=== PATIENT | male | born 1955 | race Caucasian/White ===

== ENCOUNTER → 2018-02-25 | Outpatient (CLI) | payer BC ==
--- NOTE | 2018-02-25 08:41 | CARD ---
MR#: [id number] Date of Study: 02/25/2018 Ordering Physician: LEW SIMONS, Referring Physician: LEW SIMONS, Tech: Mayelin Rodriguez [facility] APPROVED REPORT EXAM: Two-dimensional and M-mode echocardiogram with Doppler and color Doppler. Other Information Quality : Technically LimitedHR: 63bpm Rhythm : IrregularTechnically limited study due to body habitus. INDICATION Edema 2D DIMENSIONS RVDd3.8 (2.9-3.5cm)IVSd1.5 (0.7-1.1cm) Aortic Root(2D)3.6 (2.0-3.7cm)LVDd4.4 (3.9-5.9cm) LVOT Diameter1.9 (1.8-2.4cm)PWd1.2 (0.7-1.1cm) LVDs3.1 (2.5-4.0cm)FS (%) 29.8 % SV50.0 mlLVEF(%)57.1 (>50%) M-Mode DIMENSIONS Left Atrium(MM)4.25 (2.5-4.0cm)Aortic Root3.82 (2.2-3.7cm) Aortic Valve AoV Peak Pj.151.7cm/sAoV VTI29.8cm AO Peak GR.9.2mmHgLVOT Peak Pj.105.9cm/s AO Mean GR.5mmHgAVA (VMAX)1.99cm2 DAGOBERTO (VTI)2.00cm2 Mitral Valve MV E Jaiwbuwx29.6cm/sMV DECEL [id number] MV A Qpsmbpcr65.2cm/sE/A Ratio0.9 MV A [id number] Pulmonary Valve PV Peak Tewxnzxm405.0cm/s Pulmonary Vein S1 Tuhttqxj70.3cm/sD2 Rryixpzt09.4cm/s PVa [id number] LEFT VENTRICLE The left ventricle is normal size. There is mild concentric left ventricular hypertrophy. The left ve ntricular systolic function is normal. The Ejection Fraction is 55-60%. There is normal LV segmental wall motion. Transmitral Doppler flow pattern is Grade I-abnormal relaxation pattern. RIGHT VENTRICLE The right ventricle is normal size. There is normal right ventricular wall thickness. The right ventr icular systolic function is normal. ATRIA The left atrium size is normal. The right atrium size is normal. The interatrial septum is intact wit h no evidence for an atrial septal defect or patent foramen ovale as noted on 2-D or Doppler imaging. AORTIC VALVE The aortic valve is normal in structure and function. The aortic valve is trileaflet. Doppler and Col or Flow revealed no significant aortic regurgitation. There is no significant aortic valvular stenosi s. MITRAL VALVE The mitral valve is normal in structure and function. There is no evidence of mitral valve prolapse. There is no mitral valve stenosis. Doppler and Color Flow revealed no mitral valve regurgitation note d. TRICUSPID VALVE The tricuspid valve is normal in structure and function. Doppler and Color Flow revealed no tricuspid valve regurgitation noted. There is no tricuspid valve prolapse or vegetation. There is no tricuspid valve stenosis. PULMONIC VALVE Pulmonic valve not well visualized. GREAT VESSELS The aortic root is mildly enlarged. The ascending aorta is Mildly dilated. PERICARDIAL EFFUSION There is no evidence of significant pericardial effusion. Critical Notification Critical Value: No <Conclusion> The left ventricular systolic function is normal. The Ejection Fraction is 55-60%. There is normal LV segmental wall motion. No significant valvular abnormalities. There is no evidence of significant pericardial effusion. Signed by : Dewey Ring, Electronically Approved : 02/25/2018 08:40:32
--- NOTE | 2018-02-25 10:18 | RAD ---
MR#: [id number] Date of Study: 02/25/2018 Ordering Physician: LEW SIMONS, Referring Physician: LEW SIMONS, Tech: Yogesh Rowland MBA, RDMS, RVT, RDCS, RTR APPROVED REPORT Bilateral Lower Extremity Venous Study for DVT Patient Location: OUT-PATIENT Indications Lower Extremity Edema: Bilateral Vein Imaging (Right) CFV (R): Compressible SFJ (R): Compressible FEM (R): Compressible POP (R): Compressible DFV (R): Compressible PTV (R): Spontaneous GSV (R): Spontaneous Peroneals (R): Spontaneous Vein Imaging (Left) CFV (L): Compressible SFJ (L): Compressible FEM (L): Compressible POP (L): Compressible DFV (L): Compressible PTV (L): Spontaneous GSV (L): Spontaneous Peroneals (L): Spontaneous Doppler Evaluation (Right) CFV (R): Spontaneous POP (R):Spontaneous Doppler Evaluation (Left) CFV (L):Spontaneous POP (L):Spontaneous Findings Technically limited images but otherwise grossly no evidence of common femoral vein DVT. The superfic ial femoral vein bilaterally was not well visualized. No clear evidence of popliteal or below-knee ve ins. Spectral waveforms and color Doppler demonstrate normal flow patterns. Critical Notification Critical Value: No <Conclusion> Technically difficult study but within these limitations no evidence of DVT in the bilateral lower ex tremities. Signed by : Kyle Hutchinson, Electronically Approved : 02/25/2018 10:16:41
--- NOTE | 2018-02-25 10:26 | RAD ---
MR#: [id number] Date of Study: 02/25/2018 Ordering Physician: LEW SIMONS, Referring Physician: LEW SIMONS, Tech: Yogesh Rowland MBA, RDMS, RVT, RDCS, RTR APPROVED REPORT Patient Location : OUT-PATIENT Indications Lower Extremity Edema : Bilateral Findings Grayscale images of the bilateral lower extremity saphenofemoral junctions do not reveal any obvious evidence of thrombus. The right great saphenous vein measures 7 mm and the left great saphenous vein measures 7 mm. Both the greater saphenous veins do not show any evidence of reflux. The bilateral les ser saphenous veins do not show any evidence of reflux. Critical Notification Critical Value: No <Conclusion> Negative for reflux in the bilateral greater and lesser saphenous veins Signed by : Kyle Hutchinson, Electronically Approved : 02/25/2018 10:25:10
== END | disposition home or self-care (01) ==
LOC: ECHO 07:33
PROVIDERS: ATTEND Internal Medicine Cardiovascular Disease
DX: R60.0 Localized edema (principal); I51.7 Cardiomegaly
CPT/HCPCS: 93306; 93970